=== PATIENT | female | born 1975 | race Caucasian/White ===

== ENCOUNTER 2017-04-28 17:10 | Emergency (ER) | payer OTHER ==
[2017-04-28 17:32] VITALS: BP 136/68
[2017-04-28] MEDS ORDERED: HYDROcodone/ACETAMIN 5-325 MG* 1 TAB PO ONE (18:31)
[2017-04-28] MEDS ORDERED: Ondansetron ODT TAB* 4 MG SL ONE (18:32)
--- NOTE | 2017-04-28 18:37 | UC ---
Abdominal Pain Female HPI - HPI Summary HPI Summary: This is a 41 yo female with complaints of flank pain that started suddenly last night. She states it started on the right but has also involved the L today. She has noted some hematuria and urinary hesitancy. She reports assoc n/v. No fever. She has had similar symptoms in the past associated with kidney stones. - History of Current Complaint Chief Complaint: UCGU Stated Complaint: ABDOMINAL PAIN Hx Last Menstrual Period: hysterectomy Allergies/Adverse Reactions: Allergies Allergy/AdvReac Type Severity Reaction Status Date / Time Penicillins Allergy Intermediate YEAST Verified 04/28/17 17:33 INFECTION avoids NSAIDS AdvReac Stomach Uncoded 04/28/17 17:33 Cramps Home Medications: Home Medications Zolpidem TAB* [Ambien*] 1 tab PO DAILY 04/28/17 [History Confirmed 04/28/17] buPROPion TAB* [Wellbutrin TAB*] 300 mg PO DAILY 04/28/17 [History Confirmed ] PMH/Surg Hx/FS Hx/Imm Hx Psychological History: Anxiety, Depression - Surgical History Surgical History: Yes Surgery Procedure, Year, and Place: hysterectomy- 08/2011 - Family History Known Family History: Positive: None, Cardiac Disease, Hypertension - Social History Alcohol Use: None Substance Use Type: None Smoking Status (MU): Heavy Every Day Tobacco Smoker Type: Cigarettes Amount Used/How Often: 1 ppd Length of Time of Smoking/Using Tobacco: 23 Years Have You Smoked in the Last Year: Yes Household Exposure Type: Cigarettes - Immunization History Most Recent Influenza Vaccination: 2517-0240 Review of Systems Constitutional: Negative Skin: Negative Eyes: Negative ENT: Negative Respiratory: Negative Cardiovascular: Negative Gastrointestinal: Abdominal Pain, Vomiting, Nausea Genitourinary: Hematuria Motor: Negative Neurovascular: Negative Musculoskeletal: Negative Neurological: Negative Psychological: Negative All Other Systems Reviewed And Are Negative: Yes Physical Exam Triage Information Reviewed: Yes Appearance: Pain Distress - crying Vital Signs: Initial Vital Signs Temp 98 F 04/28/17 17:27 Pulse 77 04/28/17 17:27 Resp 16 04/28/17 17:27 BP 136/68 04/28/17 17:27 Pulse Ox 98 04/28/17 17:27 Vital Signs Reviewed: Yes Respiratory: Positive: Chest non-tender, Lungs clear. Negative: Crackles, Rhonchi, Stridor, Wheezing Cardiovascular: Positive: RRR, No Murmur Abdomen Description: Positive: Other: - bilateral CVA tenderness Diagnostics - Laboratory Diagnostic Studies Completed/Ordered: CT abd/pelvis - stones within the R kidney , none within the ureter, no additional abnormalities Re-Evaluation - Re-Evaluation Second Eval Re-Evaluation Time: 19:00 Change: Improved Abd Pain Female Course/Dx - Course Course Of Treatment: This is a 41 yo female who presented with flank pain, hematuria, n/v but CT was negative for ureteral stone or hydro. Etiology of her pain is not clear, but perhaps she recently passed a stone which no longer evident on imaging. She has an established urologist and plans to follow up with next week. She has suboxone prescribed to her which she did not disclose at initial triage, additional pain medications were not prescribed at discharge. - Differential Dx/Diagnosis Differential Diagnosis: Renal Colic, Urinary Tract Infection Provider Diagnoses: 1. Back pain - likely renal colic Discharge - Discharge Plan Condition: Stable Disposition: HOME Prescriptions: Ondansetron ODT TAB* [Zofran 4 MG Odt TAB*] 4 mg PO Q6H PRN #5 tab.odt PRN Reason: Nausea Patient Education Materials: Back Pain (ED) Referrals: Onel Hitchcock DO [Primary Care Provider] - If Needed Additional Instructions: Activity: As tolerated Instructions: 1. Use nausea medication as necessary 2. Follow up with your urologist about your current symptoms
--- NOTE | 2017-04-28 19:16 | RAD ---
INDICATION: Bilateral RIGHT greater than LEFT flank pain. Nausea. Hematuria. COMPARISON: October 31, 2016 CT. TECHNIQUE: Multidetector CT images were obtained from the lung bases to the ischial tuberosities. Evaluation of the viscera is limited without IV contrast. Multiplanar reformation. REPORT: Unremarkable visualized inferior thorax. The unenhanced liver, gallbladder, pancreas, and spleen are unremarkable. Negative for CT abnormality of the upper GI, small bowel, medial inferior extending appendix, or colon. Negative for ascites or free air. Small fat-containing umbilical hernia without inflammatory change. Normal adrenal glands. The RIGHT kidney is smaller than the LEFT which may reflect previous partial nephrectomy given history of RIGHT renal cell carcinoma . No conspicuous focal renal mass lesions evident with assessment limited without IV contrast. Multiple bilateral 1 -- 2 mm renal calcifications most consistent with medullary nephrocalcinosis. Negative for hydronephrosis. Unremarkable nondilated ureters. No ureteral stone or periureteral inflammatory change evident. Largely decompressed urinary bladder without suspicious finding. Post hysterectomy. Unremarkable adnexal regions. Negative for lymphadenopathy. Negative for aortoiliac aneurysm. Physiologic distention of the IVC. Small bone island at the RIGHT femur intratrochanteric region. Negative for suspicious focal osseous lesions. L5-S1 degenerative spondylosis with associated reactive endplate sclerosis without significant change. IMPRESSION: 1. The constellation of findings is most consistent with medullary nephrocalcinosis. No obstructing stone or hydronephrosis evident. 2. The RIGHT kidney is smaller than the LEFT which may reflect previous partial nephrectomy given history of RIGHT renal cell carcinoma . No conspicuous focal renal mass lesions evident with assessment limited without IV contrast. 3. Normal appendix documented. 4. Negative for lymphadenopathy. 5. Negative for suspicious osseous lesions.
== END 2017-04-28 19:50 | disposition home or self-care (01) ==
LOC: UCCORT 17:10
DX: Z72.0 Tobacco use (principal); F41.8 Other specified anxiety disorders; M54.9 Dorsalgia, unspecified
CPT/HCPCS: 74176; 81003; 99212; A9270-GY; G0463

== ENCOUNTER 2019-04-21 16:16 | Emergency (ER) | payer OTHER ==
[2019-04-21 17:26] VITALS: BP 101/62
[2019-04-21 17:26] LABS: Influenza A Molecular NEGATIVE (Negative); Influenza B Molecular NEGATIVE (Negative)
--- NOTE | 2019-04-21 17:29 | UC ---
Respiratory Complaint HPI - HPI Summary HPI Summary: 43 yo female with three day hx of cough fever [place] which is worsened by cough no CP or SOB her mother was recently admitted to [facility] with flu and pneumonia - History of Current Complaint Chief Complaint: UCRespiratory Stated Complaint: CHEST/SINUS CONGESTION,COUGH,FEVER Time Seen by Provider: 04/21/19 16:59 Hx Obtained From: Patient Hx Last Menstrual Period: hysterectomy Onset/Duration: Gradual Onset, Lasting Days Timing: Constant Severity Initially: Mild Severity Currently: Moderate Pain Intensity: 1 Pain Scale Used: 0-10 Numeric Character: Cough: Productive Aggravating Factors: Nothing Alleviating Factors: Nothing Associated Signs And Symptoms: Positive: Fever, Nasal Congestion - Allergies/Home Medications Allergies/Adverse Reactions: Allergies Allergy/AdvReac Type Severity Reaction Status Date / Time Penicillins Allergy See Comment Verified 04/21/19 16:48 avoids NSAIDS AdvReac Stomach Uncoded 04/21/19 16:48 Cramps Home Medications: Home Medications ARIPiprazole TAB* [Abilify 15 MG TAB*] 1 tab BEDTIME 04/21/19 [History Confirmed 04/21/19] Buprenorp/Nalox 8-2 MG SL TAB [Suboxone 8-2 mg SL TAB*] 1 tab BID 04/21/19 [ History Confirmed 04/21/19] Gabapentin CAP(*) [Neurontin 400 mg CAP(*)] 800 mg PO TID 04/21/19 [History Confirmed 04/21/19] PMH/Surg Hx/FS Hx/Imm Hx Previously Healthy: Yes Respiratory History: Asthma, Bronchitis, Pneumonia Cancer History: Other Other Cancer History: renal cell carcinoma - Surgical History Surgical History: Yes Surgery Procedure, Year, and Place: hysterectomy- 08/2011 - Family History Known Family History: Positive: Cardiac Disease, Hypertension, Diabetes - Social History Alcohol Use: None Substance Use Type: None Smoking Status (MU): Heavy Every Day Tobacco Smoker Type: Cigarettes Amount Used/How Often: 1 ppd Length of Time of Smoking/Using Tobacco: 23 Years Have You Smoked in the Last Year: Yes Household Exposure Type: Cigarettes - Immunization History Most Recent Influenza Vaccination: [id number] Review of Systems All Other Systems Reviewed And Are Negative: Yes Constitutional: Positive: Fever, Chills Eyes: Positive: Negative ENT: Positive: Sinus Congestion Respiratory: Positive: Cough Cardiovascular: Positive: Negative Gastrointestinal: Positive: Negative Genitourinary: Positive: Negative Motor: Positive: Negative Neurovascular: Positive: Negative Musculoskeletal: Positive: Negative Neurological: Positive: Negative Psychological: Positive: Negative Physical Exam Triage Information Reviewed: Yes Appearance: Well-Appearing, No Pain Distress, Well-Nourished Vital Signs: Initial Vital Signs Temp 97.8 F 04/21/19 16:50 Pulse 77 04/21/19 16:50 Resp 16 04/21/19 16:50 BP 97/57 04/21/19 16:50 Pulse Ox 95 04/21/19 16:50 Vital Signs Reviewed: Yes Eyes: Positive: Conjunctiva Clear ENT: Positive: Hearing grossly normal, Pharyngeal erythema, Nasal congestion, TMs normal, Uvula midline. Negative: Nasal drainage, TM red, Tonsillar swelling , Tonsillar exudate, Trismus, Muffled voice, Hoarse voice, Dental tenderness, Sinus tenderness Neck: Positive: Supple, Nontender, No Lymphadenopathy Respiratory: Positive: Lungs clear, Normal breath sounds, No respiratory distress, No accessory muscle use Cardiovascular: Positive: RRR, No Murmur Musculoskeletal: Positive: ROM Intact, No Edema Neurological: Positive: Alert Psychological Exam: Normal Skin Exam: Normal Diagnostics - Radiology No standard instances Radiology Interpretation Completed By: Radiologist Summary of Radiographic Findings: QUESTIONABLE FAINT PATCHY INFILTRATE AT THE RIGHT LUNG BASE THAT COULD BE PNEUMONIA IN THE. CORRECT CLINICAL SETTING Respiratory Course/Dx - Differential Dx/Diagnosis Provider Diagnosis: Pneumonia Discharge - Sign-Out/Discharge Documenting (check all that apply): Patient Departure All imaging exams completed and their final reports reviewed: Yes - Discharge Plan Condition: Stable Disposition: HOME Referrals: Onel Hitchcock DO [Primary Care Provider] - - Billing Disposition and Condition Condition: STABLE Disposition: Home
== END 2019-04-21 17:53 | disposition home or self-care (01) ==
LOC: UCCORT 16:16
DX: J18.9 Pneumonia, unspecified organism (principal); Z88.0 Allergy status to penicillin; Z85.528 Personal history of other malignant neoplasm of kidney; F17.210 Nicotine dependence, cigarettes, uncomplicated
CPT/HCPCS: 71046; 99212; G0463